=== PATIENT | female | born 1945 | race Caucasian/White ===

== ENCOUNTER → 2020-03-24 | Outpatient (CLI) | payer MEDICARE, OTHER ==
[~2020-03-24] MED LIST: ASPI81TA45 PO; BIFI4CAP PO; CHOL10003 PO; CLON0.1T22 PO; DICY10CA3 PO; HYDR-826 PO; LABE100T6 PO; LEVO75TA PO; LISI-170 PO; MULT-717 PO; ONDA4TAB13 SL; WHEA236P PO
[2020-03-24 11:03] LABS: BASOPHILS % (AUTO) 1 % (0-1); EOSINOPHILS % (AUTO) 4 % (1-7); LYMPHOCYTES % (AUTO) 25 % (22-44); MEAN CORPUSCULAR HEMOGLOBIN 33.7 pg (27.0-34.8); MEAN CORPUSCULAR HGB CONC 33.9 g/dL (32.4-35.8); MEAN PLATELET VOLUME 7.3 fL (7.4-10.4); MONOCYTES % (AUTO) 10 % (2-9); NEUTROPHILS % (AUTO) 60 % (42-75); PLATELET COUNT 237 x10^3/uL (130-400); RED BLOOD COUNT 3.66 x10^6/uL (3.82-5.3); RED CELL DISTRIBUTION WIDTH 14.3 % (9.6-15.2)
[2020-03-24 11:06] LABS: INTERNATIONAL NORMALIZED RATIO 0.98 (0.93-1.1); PROTHROMBIN TIME 10.4 Seconds (9.6-11.5)
[2020-03-24 11:07] LABS: ALANINE AMINOTRANSFERASE 59 U/L (12-78); ALBUMIN 3.9 g/dL (3.4-5.0); ANION GAP 9 mmol/L (5-15); CHLORIDE 103 mmol/L (98-107); CREATININE 1.59 mg/dL (0.55-1.02)
[2020-03-24 11:08] LABS: MD NO
[2020-03-24 11:09] LABS: MICROSCOPIC AUTO
[2020-03-24 11:10] LABS: ALKALINE PHOSPHATASE 95 U/L (45-117); BILIRUBIN,TOTAL 0.7 mg/dL (0.2-1.0); TOTAL PROTEIN 7.4 g/dL (6.4-8.2)
== END | disposition home or self-care (01) ==
LOC: STAR 08:17
PROVIDERS: ATTEND Urology
DX: Z01.812 Encounter for preprocedural laboratory examination (principal); Z20.828 Contact with and (suspected) exposure to other viral communicable diseases; N20.0 Calculus of kidney; I25.2 Old myocardial infarction
CPT/HCPCS: 80053; 81001; 85025; 85610; 87086; 87635; 93005

== ENCOUNTER → 2020-03-29 | Outpatient (CLI) | payer MEDICARE, OTHER | END | disposition home or self-care (01) | LOC: RAD 08:50 | PROVIDERS: ATTEND Urology | DX: N20.0 Calculus of kidney (principal) | CPT/HCPCS: 74018 ==

== ENCOUNTER 2020-03-30 05:17 | Day surgery (SDC) | payer MEDICARE, OTHER ==
[~2020-03-30] VITALS: Ht 157.5 cm; Wt 56.0 kg
[2020-03-30] MEDS ORDERED: CHLORHEXIDINE 15 ML UDC MM ONE (06:30)
[2020-03-30] MEDS ORDERED: LACTATED RINGERS 1,000 ML IV SCH (06:30)
[2020-03-30 06:48] VITALS: BP 179/81
[2020-03-30] MEDS ORDERED: FENTANYL PF 100 MCG/2ML ONE (07:25)
[2020-03-30] MEDS ORDERED: MIDAZOLAM 1 MG/ML, 2ML ONE (07:25)
[2020-03-30] MEDS ORDERED: DEXAMETHASONE 4 MG/ML, 1ML ONE (07:33)
[2020-03-30] MEDS ORDERED: ROCURONIUM 10 MG/ML,10ML ONE (07:33)
[2020-03-30] MEDS ORDERED: GLYCOPYRROLATE 0.2MG/1ML, 5ML ONE (07:33)
[2020-03-30] MEDS ORDERED: NEOSTIGMINE 1 MG/ML, 10ML ONE (07:33)
[2020-03-30] MEDS ORDERED: ACETAMINOPHEN 325 MG TABLET PO PRN (08:30)
[2020-03-30] MEDS ORDERED: OXYcodone 5 MG/5 ML ORAL.SOL UDC PO PRN (08:30)
[2020-03-30] MEDS ORDERED: FENTANYL PF 100 MCG/2ML IV PRN (08:30)
[2020-03-30] MEDS ORDERED: HYDROmorphone 1 MG/ML, 1ML INJ IVPush PRN (08:30)
[2020-03-30] MEDS ORDERED: PROMETHAZINE 25 MG/ML, 1ML IVPush PRN (08:30)
[2020-03-30] MEDS ORDERED: LABETALOL 5MG/ML, 20ML IV PRN (08:30)
[2020-03-30] MEDS ORDERED: ONDANSETRON 2MG/ML, 2ML IVPush PRN (08:30)
[2020-03-30] MEDS ORDERED: PROMETHAZINE 25 MG SUPP PR PRN (08:30)
[2020-03-30] MEDS ORDERED: hydrALAzine 20 MG/ML, 1ML IV PRN (08:30)
[2020-03-30] MEDS ORDERED: METOPROLOL 1 MG/ML, 5ML IV PRN (08:30)
[2020-03-30] MEDS ORDERED: CEFAZOLIN 1,000 MG ONE (08:36)
[2020-03-30] MEDS ORDERED: PROPOFOL 10 MG/ML, 20ML ONE (08:36)
[2020-03-30] MEDS ORDERED: ONDANSETRON 2MG/ML, 2ML ONE (08:36)
== END 2020-03-30 11:55 | disposition home or self-care (01) ==
LOC: ORIP 05:17 → OUT 05:17 → UNDOADMIN 05:17 → EDSTATUS 07:30 → UNDODISIN 11:55 → OUT 11:55
PROVIDERS: ATTEND Urology
DX: N20.0 Calculus of kidney (principal); I10 Essential (primary) hypertension; I48.0 Paroxysmal atrial fibrillation; E78.5 Hyperlipidemia, unspecified; E89.0 Postprocedural hypothyroidism; Z79.890 Hormone replacement therapy; Z79.899 Other long term (current) drug therapy; Z87.442 Personal history of urinary calculi; Z88.0 Allergy status to penicillin
CPT/HCPCS: 50590; 52356; 74018; 82360; 88300; C1758; C1769; C2617; J0690; J1100; J2250; J2405; J2704; J2710; J3010; J7120

== ENCOUNTER → 2020-04-07 | Outpatient (CLI) | payer MEDICARE, OTHER | END | disposition home or self-care (01) | LOC: RAD 08:40 | PROVIDERS: ATTEND Urology | DX: N20.0 Calculus of kidney (principal) | CPT/HCPCS: 74018 ==

== ENCOUNTER → 2020-07-26 | Outpatient (CLI) | payer MEDICARE, OTHER ==
[2020-07-26 14:50] LABS: ALANINE AMINOTRANSFERASE 26 U/L (12-78); ALBUMIN 3.8 g/dL (3.4-5.0); ANION GAP 7 mmol/L (5-15); CALCIUM 8.8 mg/dL (8.5-10.1); CHLORIDE 111 mmol/L (98-107); CREATININE 1.69 mg/dL (0.55-1.02)
[2020-07-26 14:53] LABS: ALKALINE PHOSPHATASE 96 U/L (45-117); BILIRUBIN,TOTAL 0.1 mg/dL (0.2-1.0); TOTAL PROTEIN 7.7 g/dL (6.4-8.2)
== END | disposition home or self-care (01) ==
LOC: STAR 13:01
PROVIDERS: ATTEND Obstetrics & Gynecology Female Pelvic Medicine and Reconstructive Surgery
DX: Z01.818 Encounter for other preprocedural examination (principal); R10.2 Pelvic and perineal pain; N81.4 Uterovaginal prolapse, unspecified; N39.3 Stress incontinence (female) (male); I25.2 Old myocardial infarction; Z20.822 Contact with and (suspected) exposure to COVID-19
CPT/HCPCS: 36415; 80053; 93005; U0003

== ENCOUNTER 2020-08-01 05:24 | Day surgery (SDC) | payer MEDICARE, OTHER ==
[~2020-08-01] VITALS: Ht 157.5 cm; Wt 56.0 kg
[2020-08-01 06:09] VITALS: BP 155/78
[2020-08-01] MEDS ORDERED: CHLORHEXIDINE 15 ML UDC ONE (06:14)
[2020-08-01] MEDS ORDERED: LACTATED RINGERS 1,000 ML IV SCH (06:30)
[2020-08-01] MEDS ORDERED: CHLORHEXIDINE 15 ML UDC PO ONE (06:30)
[2020-08-01] MEDS ORDERED: BUPIVACAINE/PF 0.25% ONE (06:54)
[2020-08-01] MEDS ORDERED: FUROSEMIDE 20 MG/2 ML ONE (06:54)
[2020-08-01] MEDS ORDERED: NEOMY/POLYMYXIN B GU IRR. 1 ML ONE (06:54)
[2020-08-01] MEDS ORDERED: EPINEPHRINE 1 MG/ML, 1ML ONE (06:54)
[2020-08-01] MEDS ORDERED: FENTANYL PF 250 MCG/5ML ONE (07:06)
[2020-08-01] MEDS ORDERED: FENTANYL PF 100 MCG/2ML IV PRN (08:30)
[2020-08-01] MEDS ORDERED: ACETAMINOPHEN 325 MG TABLET PO PRN (08:30)
[2020-08-01] MEDS ORDERED: OXYcodone 5 MG/5 ML ORAL.SOL UDC PO PRN (08:30)
[2020-08-01] MEDS ORDERED: LABETALOL 5MG/ML, 20ML IV PRN (08:30)
[2020-08-01] MEDS ORDERED: PROMETHAZINE 25 MG/ML, 1ML IVPush PRN (08:30)
[2020-08-01] MEDS ORDERED: hydrALAzine 20 MG/ML, 1ML IV PRN (08:30)
[2020-08-01] MEDS ORDERED: ONDANSETRON 2MG/ML, 2ML IVPush PRN (08:30)
[2020-08-01] MEDS ORDERED: MEPERIDINE/PF 25MG/0.5ML IVPush PRN (08:30)
[2020-08-01] MEDS ORDERED: HYDROmorphone 1 MG/ML, 1ML INJ IVPush PRN (08:30)
[2020-08-01] MEDS ORDERED: LIDOCAINE-MPF 2% ,5ML ONE (08:41)
[2020-08-01] MEDS ORDERED: DEXAMETHASONE 4 MG/ML, 1ML ONE (08:41)
[2020-08-01] MEDS ORDERED: ROCURONIUM 10MG/ML,5ML ONE (08:41)
[2020-08-01] MEDS ORDERED: PROPOFOL 10 MG/ML, 20ML ONE (08:41)
[2020-08-01] MEDS ORDERED: SUGAMMADEX 200 MG/2 ML IVPush ONE (08:42)
[2020-08-01] MEDS ORDERED: KETOROLAC 30 MG/1 ML ONE (08:42)
[2020-08-01] MEDS ORDERED: ONDANSETRON 2MG/ML, 2ML ONE (08:42)
[2020-08-01] MEDS ORDERED: FENTANYL PF 100 MCG/2ML ONE ×2 (08:47→09:23)
[2020-08-01] MEDS ORDERED: OXYcodone 5 MG/5 ML ORAL.SOL UDC ONE (09:23)
[2020-08-01] MEDS ORDERED: ACETAMINOPHEN 650 MG/20.3 ML UDC ONE (09:24)
[2020-08-01] MEDS ORDERED: hydrALAzine 20 MG/ML, 1ML ONE (09:45)
== END 2020-08-01 11:35 | disposition home or self-care (01) ==
LOC: OR 05:24
PROVIDERS: ATTEND Obstetrics & Gynecology Female Pelvic Medicine and Reconstructive Surgery
DX: N81.2 Incomplete uterovaginal prolapse (principal); N39.46 Mixed incontinence; D27.1 Benign neoplasm of left ovary; D27.0 Benign neoplasm of right ovary; I10 Essential (primary) hypertension; E89.0 Postprocedural hypothyroidism; Z79.890 Hormone replacement therapy; Z88.0 Allergy status to penicillin; Z79.899 Other long term (current) drug therapy; Z98.51 Tubal ligation status; Z98.890 Other specified postprocedural states
CPT/HCPCS: 57265; 57282; 57288; 58552; 88305; C1771; J0171; J0360; J1100; J1885; J2405; J2704; J3010; J7120; J1940